=== PATIENT | male | born 1985 | race American Indian/Alaskan Native ===

== ENCOUNTER 2025-01-07 14:36 | Emergency (ER) | payer OTHER ==
[2025-01-07 14:48] VITALS: BP 126/93; PULSE 83; RESP 18; TEMP 98.4; BMI 25.8
[2025-01-07] MEDS ORDERED: HIV POST EXPOSURE PROPHYLAXIS KIT PO ONE (17:01)
[2025-01-07] MEDS: HIV POST EXPOSURE PROPHYLAXIS KIT NR ONE (17:02)
[2025-01-07 21:36] LABS: HIV INTERPRETATION NEGATIVE (NEGATIVE)
== END 2025-01-07 17:12 | disposition home or self-care (01) ==
LOC: JERFT 14:36
DX: Z77.21 Contact with and (suspected) exposure to potentially hazardous body fluids (principal)
CPT/HCPCS: 36415; 86705; 86803; 87340; 87389; 87517; 99283-25